=== PATIENT | male | born 1970 | race Caucasian/White ===

== ENCOUNTER 2016-10-21 09:19 | Emergency (ER) | payer OTHER ==
[~2016-10-21] VITALS: Ht 175.3 cm; Wt 75.0 kg
[~2016-10-21 09:19] MED LIST: DEPA250T PO
[2016-10-21 09:34] VITALS: BP 135/80; PULSE 115; RESP 18; TEMP 98.7; O2SAT 98
[2016-10-21] MEDS ORDERED: DIVA250ER PO (09:39)
--- NOTE | 2016-10-21 09:42 | PD ---
HPI Chief Complaint: Psychiatric Symptoms Time Seen by Provider: 09:35 Travel History International Travel<30 days: No Contact w/Intl Traveler<30days: No Traveled to known affect area: No History of Present Illness HPI 46-year-old male with history of depression, bipolar disorder, on Depakote, brought in by PD under Ravi act for suicidal statements. The patient apparently was recently released from [facility] [facility] for [facility] violence. He states he was trying to make his way to the [employer]. According to the Ravi act the patient made statements that he wanted to hang himself and that he wants everything to go black. The patient reports history of alcohol abuse, however has not had any alcohol since he was arrested 5 months ago. The patient is very tearful. Denies any physical complaints. He denies illicit drug use. PFSH Past Medical History Arthritis: No Asthma: No Depression: Yes Heart Rhythm Problems: No Cancer: No Cardiovascular Problems: No High Cholesterol: No Chest Pain: No Congestive Heart Failure: No COPD: No Cerebrovascular Accident: No Diabetes: No Diminished Hearing: No GERD: No Glaucoma: No Genitourinary: No Headaches: No Hepatitis: No Hiatal Hernia: No Hypertension: Yes Kidney Stones: No Musculoskeletal: No Neurologic: Yes Psychiatric: Yes (bipolar, Suicide attempt) Respiratory: No Migraines: No Myocardial Infarction: No Renal Failure: No Seizures: No Sleep Apnea: No Thyroid Disease: No Ulcer: No Tetanus Vaccination: < 5 Years Past Surgical History Abdominal Surgery: No Appendectomy: No Cardiac Surgery: No Cholecystectomy: No Ear Surgery: No Endocrine Surgery: No Eye Surgery: No Genitourinary Surgery: No Gynecologic Surgery: No Neurologic Surgery: No Oral Surgery: No Pacemaker: No Thoracic Surgery: No Other Surgery: Yes (R HAND, LEFT 5TH DIGIT) Social History Alcohol Use: Yes (daily, 24 beers) Tobacco Use: Yes (2 PPD) Substance Use: Yes (marijuana) Allergies-Medications (Allergen,Severity, Reaction): Coded Allergies: No Known Allergies (Verified , 10/21/16) Reported Meds & Prescriptions Reported Meds & Active Scripts Active Reported Depakote ER (Divalproex Sodium) 250 Mg Thais 250 Mg PO BID Review of Systems Except as stated in HPI: all other systems reviewed are Neg Physical Exam Narrative GENERAL: Well-developed, well-nourished, disheveled, tearful, no acute distress. SKIN: Warm and dry. No rash. HEAD: Atraumatic. Normocephalic. EYES: Pupils equal and round. No scleral icterus. No injection or drainage. ENT: Mucous membranes pink and moist. NECK: Trachea midline. No JVD. CARDIOVASCULAR: Tachycardic, rate 110, regular. RESPIRATORY: No accessory muscle use. Clear to auscultation. Breath sounds equal bilaterally. GASTROINTESTINAL: Abdomen soft, non-tender, nondistended. MUSCULOSKELETAL: No obvious deformities. No clubbing. No cyanosis. No edema. NEUROLOGICAL: Awake and alert. No obvious cranial nerve deficits. Motor grossly within normal limits. Normal speech. PSYCHIATRIC: Tearful, flat affect, poor eye contact. Data Data Last Documented VS Vital Signs Date Time Temp Pulse Resp B/P Pulse Ox O2 Delivery O2 Flow Rate FiO2 10/21/16 09:34 98.7 115 18 135/80 98 Orders Complete Blood Count With Diff (10/21/16 09:39) Comprehensive Metabolic Panel (10/21/16 09:39) Drug Screen, Random Urine (10/21/16 09:39) Alcohol (Ethanol) (10/21/16 09:39) Salicylates (Aspirin) (10/21/16 09:39) Tylenol (Acetaminophen) (10/21/16 09:39) Valproic Acid (Depakene) (10/21/16 09:39) Psych Screen (10/21/16 09:39) Sodium Chlor 0.9% 1000 Ml Inj (Ns 1000 M (10/21/16 09:45) Labs Laboratory Tests Test 10/21/16 09:50 White Blood Count 10.7 TH/MM3 Red Blood Count 4.56 MIL/MM3 Hemoglobin 13.3 GM/DL Hematocrit 37.6 % Mean Corpuscular Volume 82.5 FL Mean Corpuscular Hemoglobin 29.1 PG Mean Corpuscular Hemoglobin 35.3 % Concent Red Cell Distribution Width 12.9 % Platelet Count 217 TH/MM3 Mean Platelet Volume 8.9 FL Neutrophils (%) (Auto) 68.4 % Lymphocytes (%) (Auto) 15.8 % Monocytes (%) (Auto) 13.5 % Eosinophils (%) (Auto) 1.5 % Basophils (%) (Auto) 0.8 % Neutrophils # (Auto) 7.3 TH/MM3 Lymphocytes # (Auto) 1.7 TH/MM3 Monocytes # (Auto) 1.4 TH/MM3 Eosinophils # (Auto) 0.2 TH/MM3 Basophils # (Auto) 0.1 TH/MM3 CBC Comment DIFF FINAL Differential Comment Sodium Level 141 MEQ/L Potassium Level 4.6 MEQ/L Chloride Level 103 MEQ/L Carbon Dioxide Level 25.9 MEQ/L Anion Gap 12 MEQ/L Blood Urea Nitrogen 15 MG/DL Creatinine 0.97 MG/DL Estimat Glomerular Filtration 83 ML/MIN Rate Random Glucose 104 MG/DL Calcium Level 8.2 MG/DL Total Bilirubin 0.5 MG/DL Aspartate Amino Transf 42 U/L (AST/SGOT) Alanine Aminotransferase 27 U/L (ALT/SGPT) Alkaline Phosphatase 78 U/L Total Protein 7.0 GM/DL Albumin 3.6 GM/DL Salicylates Level LESS THAN 1.7 MG/DL Acetaminophen Level LESS THAN 2.0 MCG/ML Valproic Acid (Depakene) Level 8 MCG/ML Ethyl Alcohol Level 160 MG/DL MDM Medical Decision Making Medical Screen Exam Complete: Yes Emergency Medical Condition: Yes Medical Record Reviewed: Yes Differential Diagnosis Depression, suicidal ideation, alcohol/drug intoxication, malingering Narrative Course Initial vital signs showed a heart rate of 115 which improved after a liter of IV fluids. CBC is unremarkable. CMP is unremarkable. Tylenol and salicylate levels are negative. Valproic acid level is 8. Alcohol level is 160. Patient is medically cleared for psychiatric evaluation and disposition by them. Diagnosis Primary Impression: Suicidal ideation Additional Impression: Alcohol intoxication Qualified Code: F10.120 - Alcohol intoxication, uncomplicated Omar Ramos MD Oct 21, 2016 09:42
[2016-10-21] MEDS ORDERED: SODIUM CHLOR 0.9% 1000 ML INJ 1,000 ML IV ONE (09:45)
[2016-10-21 10:12] LABS: AUTOMATED NEUTROPHIL # 7.3 TH/MM3 (1.8-7.7); BASOPHIL # 0.1 TH/MM3 (0-0.2); BASOPHIL % 0.8 % (0.0-2.0); EOSINOPHIL # 0.2 TH/MM3 (0-0.4); EOSINOPHIL % 1.5 % (0.0-4.0); HEMATOCRIT 37.6 % (39.0-51.0); HEMO FLAGS DIFF FINAL; LYMPH % 15.8 % (9.0-44.0); LYMPHOCYTE # 1.7 TH/MM3 (1.0-4.8); MEAN CELL VOLUME 82.5 FL (80.0-100.0); MEAN CORPUSCULAR HEMOGLOBIN 29.1 PG (27.0-34.0); MEAN CORPUSCULAR HGB CONC 35.3 % (32.0-36.0); MONO % 13.5 % (0.0-8.0); NEUT % 68.4 % (16.0-70.0); PLATELET COUNT 217 TH/MM3 (150-450); RED BLOOD COUNT 4.56 MIL/MM3 (4.50-5.90); RED CELL DISTRIBUTION WIDTH 12.9 % (11.6-17.2); WHITE BLOOD COUNT 10.7 TH/MM3 (4.0-11.0)
[2016-10-21 10:33] LABS: ACETAMINOPHEN LESS THAN 2.0 MCG/ML (10.0-30.0); ALKALINE PHOSPHATASE 78 U/L (45-117); ALT (GPT) 27 U/L (12-78); ANION GAP 12 MEQ/L (5-15); BICARBONATE 25.9 MEQ/L (21.0-32.0); BLOOD UREA NITROGEN 15 MG/DL (7-18); CHLORIDE 103 MEQ/L (98-107); GLOMERULAR FILTRATION RATE 83 ML/MIN (>89); SODIUM (NA) 141 MEQ/L (136-145); TOTAL BILIRUBIN ADULT 0.5 MG/DL (0.2-1.0)
[2016-10-21 10:34] LABS: AST (GOT) 42 U/L (15-37); POTASSIUM 4.6 MEQ/L (3.5-5.1)
[2016-10-21 10:51] VITALS: PULSE 95; RESP 16; O2SAT 98
[2016-10-21 11:32] LABS: AMPHETAMINE, URINE NEG (NEG); BARBITURATES, URINE NEG (NEG); COCAINE, URINE NEG (NEG)
[2016-10-21 12:13] VITALS: BP 97/53; PULSE 112; RESP 18; O2SAT 98
--- NOTE | 2016-10-21 18:28 | PD ---
History of Present Illness Chief Complaint: Psychiatric Symptoms Time Seen by Provider: 15:50 Travel History International Travel<30 Days: No Contact w/Intl Traveler<30days: No Known affected area: No Legal Status Legal Status: Ravi Act Ravi Act Signed By: Andrew Ravi Act Comment: BA signed by ALEISHA SILVA Badge#[id number],Case#[id number] History of Present Illness: History of Present Illness HPI 46-year-old male with chart history of alcohol dependence and self reported history of bipolar disorder who is brought in by PD under Ravi act for suicidal statements. As per the report the patient contacted the police to report that he wanted to hang himself. He wants everything to go black and that he wants help and then does not want help. As per Ed documentation the patient was released from [place] [facility] yesterday He states he was trying to make his way to the [employer]. The patient is seen in J pod. He has not presented any behavioral concerns or any suicidality. Asleep. he is alert after he awakens. Speech is clear and logical . he is clinically sober. He reports he had one beer and presents with BAL of 160. There is no indication of any hallucinations, no delusions and no paranoia. He does not appear to be internally preoccupied. he is rather vague regarding symptomatology and states " I have been depressed for about 5 - 6 months and I am always thinking of ways to hurt myself." He has not made any attempts against his life. He is vague regarding symptoms of depression and states " just sleep a lot". He does not verbalize a plan to this card writer hand of how he will harm himself. During the evaluation and when I begin to discuss possible disposition options patient asks " how many days do I have on the BA to stay here?. He then states " that's ok . When I leave here I will go to [facility] to the hospital there or I will go to [facility]". As per record review he has one admission to [facility] in 2013 for alcohol dependence and violent behavior towards his girlfriend. He reports this card writer hand that he has received treatment at [facility] at the crisis unit. He also reports he was treated in [place] [facility] with Depakote and presents with levelof 8. PFSH Past Medical History Arthritis: No Asthma: No Depression: Yes Heart Rhythm Problems: No Cancer: No Cardiovascular Problems: No High Cholesterol: No Chest Pain: No Congestive Heart Failure: No COPD: No Cerebrovascular Accident: No Diabetes: No Diminished Hearing: No GERD: No Glaucoma: No Genitourinary: No Headaches: No Hepatitis: No Hiatal Hernia: No Hypertension: Yes Kidney Stones: No Musculoskeletal: No Neurologic: Yes Psychiatric: Yes (bipolar, Suicide attempt) Respiratory: No Migraines: No Myocardial Infarction: No Renal Failure: No Seizures: No Sleep Apnea: No Thyroid Disease: No Ulcer: No Tetanus Vaccination: < 5 Years Past Surgical History Abdominal Surgery: No Appendectomy: No Cardiac Surgery: No Cholecystectomy: No Ear Surgery: No Endocrine Surgery: No Eye Surgery: No Genitourinary Surgery: No Gynecologic Surgery: No Neurologic Surgery: No Oral Surgery: No Pacemaker: No Thoracic Surgery: No Other Surgery: Yes (R HAND, LEFT 5TH DIGIT) Psychiatric History Psychiatric History Hx Psychiatric Treatment: HX ALCOHOL ABUSE, HX UNSPECIFIED ANTISOCIAL TRAITS. History of Inpatient Treatment: Yes Guns or firearms in home: No Social History male. has 2 children. released from [facility] yesterday. 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 Reports he has 2 children. Hx Alcohol Use: Yes (daily, 24 beers) Hx Tobacco Use: Yes (2 PPD) Hx Substance Use: Yes (marijuana) Substance Use Type: Alcohol, Amphetamines-Stimulants, Nicotine/Cigarettes, Cocaine Hx of Substance Use Treatment: No Allergies-Medications (Allergen,Severity, Reaction): Coded Allergies: No Known Allergies (Verified , 10/21/16) Reported Meds & Prescriptions Reported Meds & Active Scripts Active Reported Depakote ER (Divalproex Sodium) 250 Mg Thais 250 Mg PO BID Review of Systems Except as stated in HPI: all other systems reviewed are Neg Psychiatric: DENIES: Anxiety, Confusion, Mood changes, Depression, Hallucinations, Agitation, Suicidal Ideation, Homicidal Ideation, Delusions Exam Alert: Yes Star: Person (ox4) Mood: Calm Affect: Euthymic Speech: Clear, Logical Eye Contact: Indirect Memory Intact: Comment (not impaired) Hallucinations: Other (negative) Suicidal: Ideation (neagtive) Homicidal: Ideation (neagtive. ) Insight/Judgement poor. poor MDM Medical Decision Making Medical Record Reviewed: Yes Assessment/Plan 46 year old male with history of alcohol dependence on a BA after he called and reported suicidal ideation with intent of getting placed under a BA. He does not present any psychosis and does not meet criteria at this time for inpatietn treatment. He does not meet criteria for BA. He will be discharged . Danielle upon discharge did advise me that he will try and get admitted to [facility]. His presentation is highly suspected to be malingered in order to obtain intermediate. Orders Complete Blood Count With Diff (10/21/16 09:39) Comprehensive Metabolic Panel (10/21/16 09:39) Drug Screen, Random Urine (10/21/16 09:39) Alcohol (Ethanol) (10/21/16 09:39) Salicylates (Aspirin) (10/21/16 09:39) Tylenol (Acetaminophen) (10/21/16 09:39) Valproic Acid (Depakene) (10/21/16 09:39) Psych Screen (10/21/16 09:39) Sodium Chlor 0.9% 1000 Ml Inj (Ns 1000 M (10/21/16 09:45) Results Vital Signs Date Time Temp Pulse Resp B/P Pulse Ox O2 Delivery O2 Flow Rate FiO2 10/21/16 12:13 112 18 97/53 98 Room Air 10/21/16 10:51 95 16 98 Room Air 10/21/16 09:34 98.7 115 18 135/80 98 Laboratory Tests Test 10/21/16 10/21/16 09:50 11:00 White Blood Count 10.7 Red Blood Count 4.56 Hemoglobin 13.3 Hematocrit 37.6 Mean Corpuscular Volume 82.5 Mean Corpuscular Hemoglobin 29.1 Mean Corpuscular Hemoglobin 35.3 Concent Red Cell Distribution Width 12.9 Platelet Count 217 Mean Platelet Volume 8.9 Neutrophils (%) (Auto) 68.4 Lymphocytes (%) (Auto) 15.8 Monocytes (%) (Auto) 13.5 Eosinophils (%) (Auto) 1.5 Basophils (%) (Auto) 0.8 Neutrophils # (Auto) 7.3 Lymphocytes # (Auto) 1.7 Monocytes # (Auto) 1.4 Eosinophils # (Auto) 0.2 Basophils # (Auto) 0.1 CBC Comment DIFF FINAL Differential Comment Sodium Level 141 Potassium Level 4.6 Chloride Level 103 Carbon Dioxide Level 25.9 Anion Gap 12 Blood Urea Nitrogen 15 Creatinine 0.97 Estimat Glomerular Filtration 83 Rate Random Glucose 104 Calcium Level 8.2 Total Bilirubin 0.5 Aspartate Amino Transf 42 (AST/SGOT) Alanine Aminotransferase 27 (ALT/SGPT) Alkaline Phosphatase 78 Total Protein 7.0 Albumin 3.6 Salicylates Level LESS THAN 1.7 Acetaminophen Level LESS THAN 2.0 Valproic Acid (Depakene) Level 8 Ethyl Alcohol Level 160 Urine Opiates Screen NEG Urine Barbiturates Screen NEG Urine Amphetamines Screen NEG Urine Benzodiazepines Screen NEG Urine Cocaine Screen NEG Urine Cannabinoids Screen NEG Diagnosis Primary Impression: Alcohol-induced mood disorder Additional Impression: Alcohol intoxication Psychiatrically Cleared: Yes Departure Forms: Tests/Procedures Patient Instructions: General Instructions, Mood Disorders (ED), Alcohol Intoxication (ED), Medical Clearance for Psychiatric Care (ED) Additional Instructions: Follow up with outpatient provider/[facility] [phone]. Attend AA Meetings. Return to ER if symptoms worsen. Disposition: 01 DISCHARGE HOME Condition: Stable Problem Qualifiers Additional Impression: Alcohol intoxication Qualified Code: F10.120 - Alcohol intoxication, uncomplicated Erinn Almaraz Oct 21, 2016 18:28
== END 2016-10-21 16:23 | disposition home or self-care (01) ==
LOC: NEPC 09:19 → NEPJ 16:23
DX: F10.120 Alcohol abuse with intoxication, uncomplicated (principal); F39 Unspecified mood [affective] disorder; I10 Essential (primary) hypertension; F31.9 Bipolar disorder, unspecified; F17.210 Nicotine dependence, cigarettes, uncomplicated; F12.90 Cannabis use, unspecified, uncomplicated; Y90.6 Blood alcohol level of 120-199 mg/100 ml
CPT/HCPCS: 80053; 80164; 80307; 80320; 85025; 96360; 99285; J7030; 80329; G0480

== ENCOUNTER 2017-01-13 14:29 | Emergency (ER) | payer SELFPAY ==
[~2017-01-13] VITALS: Ht 175.3 cm; Wt 72.5 kg
[~2017-01-13 14:29] MED LIST changes: -DEPA250T PO; +DIVA250ER PO
[2017-01-13 14:31] VITALS: BP 124/78; PULSE 90; RESP 18; TEMP 99.1; O2SAT 97
--- NOTE | 2017-01-13 15:23 | PD ---
Physical Exam Date Seen by Provider: Jan 13, 2017 Time Seen by Provider: 15:19 Narrative Pt is a 46 year old male presenting to the ED for evaluation of a skin growth. Growth has been there for 4-6 weeks. Pt tried to pop it yesterday with a baby pin. Uncertain if needle was sterilized. No fevers chills. Pt reports pain behind the growth, pain is an 8/10 and sore. VSS. Awaiting bed placement. Data Data Last Documented VS Vital Signs Date Time Temp Pulse Resp B/P Pulse Ox O2 Delivery O2 Flow Rate FiO2 01/13/17 14:31 99.1 90 18 124/78 97 Room Air MDM Supervised Visit with DELMY: Lucia Mcknight Jan 13, 2017 15:23
--- NOTE | 2017-01-13 15:38 | PD ---
HPI . right cheek bump for some time Chief Complaint: Skin Problem Time Seen by Provider: 15:32 Travel History International Travel<30 days: No Contact w/Intl Traveler<30days: No Traveled to known affect area: No History of Present Illness HPI 46-year-old male here with complaints of her right cheek bump that has been present for what he reports as quite some time. He told the staff in triage that it's been there for about 4-6 weeks. Patient tells me that he tried to pop it with and pin and nothing came out. He is wanting it removed because it' s an eyesore. He denies any pain, fever or chills. He has no other complaints. PFSH Past Medical History Arthritis: No Asthma: No Depression: Yes Heart Rhythm Problems: No Cancer: No Cardiovascular Problems: No High Cholesterol: No Chest Pain: No Congestive Heart Failure: No COPD: No Cerebrovascular Accident: No Diabetes: No Diminished Hearing: No GERD: No Glaucoma: No Genitourinary: No Headaches: No Hepatitis: No Hiatal Hernia: No Hypertension: Yes Kidney Stones: No Musculoskeletal: No Neurologic: Yes Psychiatric: Yes (bipolar, Suicide attempt) Respiratory: No Migraines: No Myocardial Infarction: No Renal Failure: No Seizures: No Sleep Apnea: No Thyroid Disease: No Ulcer: No Past Surgical History Abdominal Surgery: No Appendectomy: No Cardiac Surgery: No Cholecystectomy: No Ear Surgery: No Endocrine Surgery: No Eye Surgery: No Genitourinary Surgery: No Gynecologic Surgery: No Neurologic Surgery: No Oral Surgery: No Pacemaker: No Thoracic Surgery: No Other Surgery: Yes (R HAND, LEFT 5TH DIGIT) Social History Alcohol Use: Yes (daily, 24 beers) Tobacco Use: Yes (2 PPD) Substance Use: Yes (marijuana) Allergies-Medications (Allergen,Severity, Reaction): Coded Allergies: No Known Allergies (Verified , 10/21/16) Reported Meds & Prescriptions Reported Meds & Active Scripts Active Reported Depakote ER (Divalproex Sodium) 250 Mg Thais 250 Mg PO BID Review of Systems General / Constitutional: No: Fever Eyes: No: Visual changes HENT: No: Headaches Cardiovascular: No: Chest Pain or Discomfort Respiratory: No: Shortness of Breath Gastrointestinal: No: Abdominal Pain Genitourinary: No: Dysuria Musculoskeletal: No: Pain Skin: Positive Other (right cheek swelling ), No Rash Neurologic: No: Weakness Psychiatric: No: Depression Endocrine: No: Polydipsia Hematologic/Lymphatic: No: Easy Bruising Physical Exam Narrative GENERAL: AAO x 3, no acute distress, Well-nourished, well-developed patient. SKIN: Warm and dry. No visible rashes or bruising. perfect 1.4 cm well circumscribed cyst vs. lipoma on the right side of the cheek. soft, nontender, no irregularities HEAD: Normocephalic and atraumatic. EYES: No scleral icterus. No injection or drainage. ENT: No nasal drainage noted. Mucous membranes pink. Airway patent. NECK: Supple, trachea midline. No JVD. CARDIOVASCULAR: Regular rate and rhythm without murmurs, gallops, or rubs. RESPIRATORY: Breath sounds equal bilaterally. No accessory muscle use. No rhonchi or rales. GASTROINTESTINAL: Abdomen soft, non-tender, nondistended. EXTREMITIES: No cyanosis or edema. BACK: Nontender without obvious deformity. No CVA tenderness. PSYCH: AAO x 3, normal affect. Data Data Last Documented VS Vital Signs Date Time Temp Pulse Resp B/P Pulse Ox O2 Delivery O2 Flow Rate FiO2 01/13/17 14:31 99.1 90 18 124/78 97 Room Air MDM Medical Decision Making Medical Screen Exam Complete: Yes Emergency Medical Condition: Yes Medical Record Reviewed: Yes Differential Diagnosis cyst, lipoma, less likely melanoma Narrative Course 46-year-old male here with complaints of her right cheek bump that has been present for what he reports as quite some time. He told the staff in triage that it's been there for about 4-6 weeks. Patient tells me that he tried to pop it with and pin and nothing came out. He is wanting it removed because it' s an eyesore. He denies any pain, fever or chills. He has no other complaints. I explained to patient that this is not a medical emergency and ultimately he may need to see a plastic surgeon to have this removed. A medical screening exam was performed: At the time of evaluation the presenting medical condition was determined not to be of an emergent nature. The patient was given the option of receiving additional care, but declined. Patient was given options for additional community resources from which to obtain care. The Patient Has Been advised to seek medical attention for their presenting complaint. The patient has been advised to return to the ER at any time if an emergent condition develops. Diagnosis Primary Impression: Encounter for medical screening examination Condition: Stable Makeda Schafer Jan 13, 2017 15:38
== END 2017-01-13 15:46 | disposition left against medical advice (07) ==
LOC: NEPK 14:29
DX: Z04.9 Encounter for examination and observation for unspecified reason (principal)
CPT/HCPCS: 99281